=== PATIENT | female | born 1970 | race African-American/Black ===

== ENCOUNTER 2021-11-13 22:12 | Inpatient (IN) ==
[2021-11-13 23:11] LABS: ABG Base Excess -7.2 MMOL/L (-2.5-2.5); ABG HCO3 19.3 MMOL/L (20-26); ABG Oxygen Saturation 95.6 % (95-100); ABG PH 7.261 (7.35-7.45); ABG PO2 97.4 MM HG (80-95); ABG TCO2 20.7 MMOL/L (23-27)
[2021-11-13 23:23] LABS: Basophils % 0.1 % (0.0-0.8); Eosinophils % 0.1 % (0.00-10.9); Hematocrit 24.3 VOL% (35.7-47.0); Hemoglobin 8.2 GM/DL (12.0-16.0); Immature Granulocytes % 2.1 %; Immature Granulocytes Absolute 0.17 #; Lymphocytes # 0.4 10*3/uL (1.4-4.0); Lymphocytes % 5.2 % (21.3-54.2); Mean Corpuscular HGB Conc 33.7 GM/DL (32-36); Mean Corpuscular Volume 61.4 FL (87-102); Mean Platelet Volume 9.8 FL (9.6-12.0); Monocytes % 2.9 % (1.7-12.7); Neutrophils % 89.6 % (38.7-73.9); Platelet Count 274 T/CUMM (130-400); Red Blood Count 3.96 MC/CUMM (3.8-5.5); Red Cell Distribution Width 17.9 % (9.3-17.3)
[2021-11-13 23:30] LABS: Bilirubin,Urine Negative (Negative); Blood, Urine Moderate mg/dL (Negative); Glucose,Urine (UA) 150 mg/dL (Negative); Ketones,Urine Negative (Negative); Nitrite,Urine Negative (Negative); Protein,Urine 100 MG/DL; Urine Appearance CLOUDY (Clear); Urine Color Yellow (Yellow); Urine Specific Gravity 1.011 (1.001-1.035); Urine Urobilinogen < 2.0 EU/DL (<2.0)
[2021-11-13 23:46] LABS: Alanine Aminotransferase 24 U/L (13-56); Alkaline Phosphatase 58 U/L (45-117); Aspartate Amino Transferase 67 U/L (0-37); Bilirubin,Total < 0.39 MG/DL (0.20-1.00); Blood Urea Nitrogen 16 MG/DL (7-18); Calcium 7.1 MG/DL (8.5-10.1); Carbon Dioxide 19 MMOL/L (21-32); Estimated Glom Filtration Rate 49 ML/MIN; Glucose 183 MG/DL (74-106); Osmolality,Calculated 278.8 MOS/KG (273-304); Potassium 3.6 MMOL/L (3.5-5.1); Sodium 137 MMOL/L (136-145); Total Protein 5.9 G/DL (6.4-8.2)
[2021-11-13 23:56] LABS: Lymphocytes 5 % (20-55); Segmented Neutrophils 93 % (50-85); Total Cells Counted 100
[2021-11-14 00:02] LABS: Anisocytosis 1+; Hypochromia 1+; Microcytosis 1+; Target Cells 1+
[2021-11-14 00:03] LABS: Platelet Estimate Increased
[2021-11-14] MEDS: SODIUM CHLORIDE 0.9% 1,000 ML IV SCH ×5 (00:11→23:30)
[2021-11-14 04:04] LABS: ABG HCO3 20.6 MMOL/L (20-26); ABG Oxygen Saturation 98.8 % (95-100); ABG PH 7.268 (7.35-7.45); ABG PO2 224.4 MM HG (80-95)
[2021-11-14] MEDS ORDERED: ALBUTEROL 2.5 MG/3 ML NEB RESP TX PRN (04:42)
[2021-11-14] MEDS ORDERED: LACTULOSE 20 GM/30 ML UDCUP PO PRN (04:43)
[2021-11-14] MEDS ORDERED: ONDANSETRON 4 MG/2 ML VIAL IV PRN (04:43)
[2021-11-14 05:23] LABS: Basophils % 0.1 % (0.0-0.8); Hematocrit 24.8 VOL% (35.7-47.0); Hemoglobin 8.5 GM/DL (12.0-16.0); Immature Granulocytes % 1.4 %; Lymphocytes # 0.6 10*3/uL (1.4-4.0); Lymphocytes % 7.6 % (21.3-54.2); Mean Corpuscular HGB Conc 34.3 GM/DL (32-36); Mean Corpuscular Volume 61.4 FL (87-102); Monocytes % 2.5 % (1.7-12.7); Neutrophils % 88.4 % (38.7-73.9); Platelet Count 303 T/CUMM (130-400); Red Blood Count 4.04 MC/CUMM (3.8-5.5); Red Cell Distribution Width 18.2 % (9.3-17.3); White Blood Count 7.3 T/CUMM (4-12)
[2021-11-14] MEDS: PANTOPRAZOLE 40 MG VIAL IV SCH (05:24)
[2021-11-14] MEDS: ENOXAPARIN 40 MG/0.4 ML SYRINGE SUBCUT SCH (05:24)
[2021-11-14 05:41] LABS: Platelet Estimate Normal
[2021-11-14 05:42] LABS: Anisocytosis 2+; Burr Cells Few; Target Cells Few; Tear Drop Cells Few
[2021-11-14 05:53] LABS: Alanine Aminotransferase 27 U/L (13-56); Albumin 1.7 G/DL (3.4-5.0); Alkaline Phosphatase 54 U/L (45-117); Aspartate Amino Transferase 55 U/L (0-37); Bilirubin,Total < 0.39 MG/DL (0.20-1.00); Blood Urea Nitrogen 16 MG/DL (7-18); Calcium 6.6 MG/DL (8.5-10.1); Carbon Dioxide 20 MMOL/L (21-32); Estimated Glom Filtration Rate 49 ML/MIN; Glucose 68 MG/DL (74-106); Potassium 3.9 MMOL/L (3.5-5.1); Sodium 136 MMOL/L (136-145); Total Protein 5.7 G/DL (6.4-8.2)
[2021-11-14] MEDS ORDERED: GLUCAGON 1 MG VIAL IM PRN (06:44)
[2021-11-14] MEDS: cefTRIAXone 1,000 MG in SODIUM CHLORIDE 0.9% 100 ML IV SCH (07:10)
[2021-11-14] MEDS ORDERED: DEXTROSE 50% 25 GM/50 ML SYRINGE IV ONE (07:53)
[2021-11-14 07:54] LABS: ABG Base Excess -5.3 MMOL/L (-2.5-2.5); ABG Oxygen Saturation 99.2 % (95-100); ABG PH 7.331 (7.35-7.45); ABG TCO2 18.8 MMOL/L (23-27); Pt O2 Delivery Device Ventilator
[2021-11-14] MEDS ORDERED: DEXTROSE 50% 25 GM/50 ML VIAL IV STA (08:00)
[2021-11-14] MEDS: DEXTROSE 5% 1,000 ML IV SCH (08:00)
[2021-11-14] MEDS ORDERED: REMDESIVIR 200 MG in SODIUM CHLORIDE 0.9% 210 ML IV ONE (09:00)
[2021-11-14] MEDS: DEXAMETHASONE 10 MG/1 ML VIAL IV SCH (09:50)
[2021-11-14] MEDS: PREGABALIN 50 MG CAPSULE PO SCH (09:54)
[2021-11-14] MEDS: buPROPion SR 150 MG TABLET PO SCH (10:35)
[2021-11-14] MEDS: INSULIN LISPRO 100 UNIT/ML SUBCUT SCH ×2 (12:35→19:38)
[2021-11-14] MEDS: VANCOMYCIN 50 MG/ML 60 ML/BOTTLE PO SCH ×2 (12:35→17:45)
[2021-11-15] MEDS: VANCOMYCIN 50 MG/ML 60 ML/BOTTLE PO SCH ×4 (01:46→17:45)
[2021-11-15] MEDS: INSULIN LISPRO 100 UNIT/ML SUBCUT SCH ×4 (01:50→17:45)
[2021-11-15 04:16] LABS: ABG Base Excess -6.3 MMOL/L (-2.5-2.5); ABG HCO3 18.7 MMOL/L (20-26); ABG Oxygen Saturation 98.2 % (95-100); ABG PCO2 34.5 MM HG (35-48); ABG PH 7.351 (7.35-7.45); ABG PO2 153.2 MM HG (80-95); ABG TCO2 19.7 MMOL/L (23-27); Allen Test Positive; Pt O2 Delivery Device Ventilator
[2021-11-15 06:11] LABS: Hematocrit 19.4 VOL% (35.7-47.0); Hemoglobin 6.6 GM/DL (12.0-16.0); Immature Granulocytes % 1.4 %; Immature Granulocytes Absolute 0.11 #; Lymphocytes # 0.6 10*3/uL (1.4-4.0); Lymphocytes % 7.6 % (21.3-54.2); Mean Corpuscular Volume 60.8 FL (87-102); Mean Platelet Volume 9.6 FL (9.6-12.0); Monocytes % 1.6 % (1.7-12.7); Neutrophils % 89.4 % (38.7-73.9); Platelet Count 222 T/CUMM (130-400); Red Blood Count 3.19 MC/CUMM (3.8-5.5); White Blood Count 8.1 T/CUMM (4-12)
[2021-11-15] MEDS: INSULIN GLARGINE 100 UNIT/ML SUBCUT SCH ×2 (06:18→20:08)
[2021-11-15 06:31] LABS: INR 1.1; PT Patient Result 11.8 SECS (10.5-12.0)
[2021-11-15 06:34] LABS: Alanine Aminotransferase 17 U/L (13-56); Albumin 1.6 G/DL (3.4-5.0); Alkaline Phosphatase 63 U/L (45-117); Aspartate Amino Transferase 41 U/L (0-37); Bilirubin,Total < 0.39 MG/DL (0.20-1.00); Blood Urea Nitrogen 13 MG/DL (7-18); Calcium 7.1 MG/DL (8.5-10.1); Carbon Dioxide 19 MMOL/L (21-32); Estimated Glom Filtration Rate 53 ML/MIN; Glucose 101 MG/DL (74-106); Osmolality,Calculated 276.5 MOS/KG (273-304); Potassium 3.5 MMOL/L (3.5-5.1); Sodium 139 MMOL/L (136-145); Total Protein 5.6 G/DL (6.4-8.2)
[2021-11-15] MEDS: ENOXAPARIN 40 MG/0.4 ML SYRINGE SUBCUT SCH (06:38)
[2021-11-15 06:40] LABS: Alanine Aminotransferase 22 U/L (13-56); Albumin 1.6 G/DL (3.4-5.0); Alkaline Phosphatase 61 U/L (45-117); Aspartate Amino Transferase 42 U/L (0-37); Bilirubin,Direct < 0.100 MG/DL (0.0-0.20); Bilirubin,Indirect 0.3 MG/DL (0.0-1.0); Bilirubin,Total < 0.39 MG/DL (0.20-1.00); Blood Urea Nitrogen 13 MG/DL (7-18); Calcium 6.7 MG/DL (8.5-10.1); Carbon Dioxide 19 MMOL/L (21-32); Estimated Glom Filtration Rate 53 ML/MIN; Glucose 99 MG/DL (74-106); Osmolality,Calculated 280.3 MOS/KG (273-304); Potassium 3.6 MMOL/L (3.5-5.1); Sodium 141 MMOL/L (136-145); Total Protein 5.1 G/DL (6.4-8.2)
[2021-11-15] MEDS: PANTOPRAZOLE 40 MG VIAL IV SCH (06:42)
[2021-11-15 06:47] LABS: Band Neutrophils 1 % (0-10); Lymphocytes 6 % (20-55); Nucleated Red Blood Cells 1 (0-5); Platelet Estimate Normal; Segmented Neutrophils 92 % (50-85); Total Cells Counted 100
[2021-11-15 06:48] LABS: Hypochromia 2+; Microcytosis 3+; Target Cells Few
[2021-11-15] MEDS: PREGABALIN 50 MG CAPSULE PO SCH (09:15)
[2021-11-15] MEDS: buPROPion SR 150 MG TABLET PO SCH (09:15)
[2021-11-15] MEDS ORDERED: SODIUM CHLORIDE 0.9% 1,000 ML IV PRN (09:45)
[2021-11-15] MEDS ORDERED: MAGNESIUM SULF RIDER 2 GM/50 ML PREMIX IV ONE (09:48)
[2021-11-15] MEDS ORDERED: FUROSEMIDE 40 MG/4 ML VIAL IV ONE (09:51)
[2021-11-15] MEDS: DEXAMETHASONE 10 MG/1 ML VIAL IV SCH (11:08)
[2021-11-15] MEDS: SODIUM CHLORIDE 0.9% 1,000 ML IV SCH ×3 (11:09→19:09)
[2021-11-15] MEDS: cefTRIAXone 1,000 MG in SODIUM CHLORIDE 0.9% 100 ML IV SCH (11:11)
[2021-11-15] MEDS: DEXTROSE 5% 1,000 ML IV SCH (11:28)
[2021-11-15] MEDS: REMDESIVIR 100 MG in SODIUM CHLORIDE 0.9% 100 ML IV SCH (15:45)
[2021-11-15 17:31] LABS: Hematocrit 23.6 VOL% (35.7-47.0)
[2021-11-15] MEDS ORDERED: ZINC OXIDE PASTE 113 GM TUBE TOP PRN (18:48)
[2021-11-16] MEDS: VANCOMYCIN 50 MG/ML 60 ML/BOTTLE PO SCH ×5 (00:25→23:48)
[2021-11-16] MEDS: INSULIN LISPRO 100 UNIT/ML SUBCUT SCH ×5 (00:25→23:48)
[2021-11-16 04:04] LABS: ABG Base Excess -7.1 MMOL/L (-2.5-2.5); ABG HCO3 18.6 MMOL/L (20-26); ABG Oxygen Saturation 97.8 % (95-100); ABG PCO2 35.3 MM HG (35-48); ABG PH 7.322 (7.35-7.45); ABG TCO2 17.2 MMOL/L (23-27)
[2021-11-16] MEDS: PANTOPRAZOLE 40 MG VIAL IV SCH (05:17)
[2021-11-16] MEDS: ENOXAPARIN 40 MG/0.4 ML SYRINGE SUBCUT SCH (05:17)
[2021-11-16] MEDS: cefTRIAXone 1,000 MG in SODIUM CHLORIDE 0.9% 100 ML IV SCH (06:04)
[2021-11-16 06:30] LABS: Basophils % 0.1 % (0.0-0.8); Eosinophils % 0.3 % (0.00-10.9); Hematocrit 22.2 VOL% (35.7-47.0); Hemoglobin 7.6 GM/DL (12.0-16.0); Immature Granulocytes % 2.2 %; Immature Granulocytes Absolute 0.25 #; Lymphocytes # 0.6 10*3/uL (1.4-4.0); Lymphocytes % 5.6 % (21.3-54.2); Mean Corpuscular HGB Conc 34.2 GM/DL (32-36); Mean Corpuscular Volume 62.2 FL (87-102); Mean Platelet Volume 9.5 FL (9.6-12.0); Monocytes % 0.9 % (1.7-12.7); Neutrophils % 90.9 % (38.7-73.9); Platelet Count 199 T/CUMM (130-400); Red Blood Count 3.57 MC/CUMM (3.8-5.5); Red Cell Distribution Width 18.8 % (9.3-17.3); White Blood Count 11.4 T/CUMM (4-12)
[2021-11-16 06:40] LABS: INR 1.1; PT Patient Result 11.7 SECS (10.5-12.0)
[2021-11-16 06:52] LABS: Alanine Aminotransferase 18 U/L (13-56); Albumin 1.5 G/DL (3.4-5.0); Alkaline Phosphatase 72 U/L (45-117); Aspartate Amino Transferase 29 U/L (0-37); Bilirubin,Indirect 0.3 MG/DL (0.0-1.0); Bilirubin,Total 0.6 MG/DL (0.20-1.00); Bilirubin,Total < 0.39 MG/DL (0.20-1.00); Blood Urea Nitrogen 15 MG/DL (7-18); Calcium 6.9 MG/DL (8.5-10.1); Calcium 7.1 MG/DL (8.5-10.1); Carbon Dioxide 19 MMOL/L (21-32); Estimated Glom Filtration Rate 66 ML/MIN; Glucose 197 MG/DL (74-106); Osmolality,Calculated 284.4 MOS/KG (273-304); Osmolality,Calculated 286.3 MOS/KG (273-304); Potassium 3.1 MMOL/L (3.5-5.1); Sodium 140 MMOL/L (136-145); Total Protein 5.5 G/DL (6.4-8.2); Total Protein 5.7 G/DL (6.4-8.2)
[2021-11-16 06:54] LABS: % Iron Saturation 9.1 % (18-50)
[2021-11-16] MEDS: DEXTROSE 5% 1,000 ML IV SCH (07:02)
[2021-11-16] MEDS: DEXAMETHASONE 10 MG/1 ML VIAL IV SCH (08:29)
[2021-11-16] MEDS: REMDESIVIR 100 MG in SODIUM CHLORIDE 0.9% 100 ML IV SCH (08:29)
[2021-11-16] MEDS ORDERED: POTASSIUM CHLORIDE 20 MEQ TABLET PO ONE (10:30)
[2021-11-16] MEDS ORDERED: VANCOMYCIN INJ 2,000 MG in SODIUM CHLORIDE 0.9% 500 ML IV SCH (12:00)
[2021-11-16] MEDS: VANCOMYCIN INJ 1,000 MG in SODIUM CHLORIDE 0.9% 250 ML IV SCH (12:44)
[2021-11-16] MEDS: INSULIN GLARGINE 100 UNIT/ML SUBCUT SCH (20:10)
[2021-11-17 03:28] LABS: ABG HCO3 18.7 MMOL/L (20-26); ABG Oxygen Saturation 99.5 % (95-100); ABG PCO2 31.8 MM HG (35-48); ABG PH 7.354 (7.35-7.45); ABG TCO2 16.5 MMOL/L (23-27)
[2021-11-17] MEDS: ENOXAPARIN 40 MG/0.4 ML SYRINGE SUBCUT SCH (05:15)
[2021-11-17] MEDS: PANTOPRAZOLE 40 MG VIAL IV SCH (05:15)
[2021-11-17] MEDS: VANCOMYCIN 50 MG/ML 60 ML/BOTTLE PO SCH ×3 (05:16→18:45)
[2021-11-17 06:20] LABS: Basophils % 0.1 % (0.0-0.8); Eosinophils # 0.1 10*3/uL (0.0-0.87); Eosinophils % 0.7 % (0.00-10.9); Hematocrit 23.7 VOL% (35.7-47.0); Immature Granulocytes Absolute 0.23 #; Lymphocytes # 0.9 10*3/uL (1.4-4.0); Lymphocytes % 7.8 % (21.3-54.2); Mean Corpuscular HGB Conc 33.8 GM/DL (32-36); Mean Corpuscular Volume 63.2 FL (87-102); Mean Platelet Volume 9.2 FL (9.6-12.0); Monocytes % 1.1 % (1.7-12.7); NRBC # 0.02 10*3/uL; Neutrophils % 88.3 % (38.7-73.9); Platelet Count 161 T/CUMM (130-400); Red Blood Count 3.75 MC/CUMM (3.8-5.5); Red Cell Distribution Width 18.9 % (9.3-17.3); White Blood Count 11.7 T/CUMM (4-12)
[2021-11-17 06:40] LABS: Band Neutrophils 1 % (0-10); Hypochromia 1+; Lymphocytes 6 % (20-55); Microcytosis 1+; Nucleated Red Blood Cells 1 (0-5); Platelet Estimate Adequate; Segmented Neutrophils 93 % (50-85); Total Cells Counted 100
[2021-11-17] MEDS: VANCOMYCIN INJ 1,000 MG in SODIUM CHLORIDE 0.9% 250 ML IV SCH (06:52)
[2021-11-17] MEDS: INSULIN LISPRO 100 UNIT/ML SUBCUT SCH ×3 (06:52→18:45)
[2021-11-17] MEDS: DEXTROSE 5% 1,000 ML IV SCH (07:23)
[2021-11-17 07:48] LABS: Calcium 7.1 MG/DL (8.5-10.1); Osmolality,Calculated 284.3 MOS/KG (273-304); Potassium 3.5 MMOL/L (3.5-5.1)
[2021-11-17] MEDS: DEXAMETHASONE 10 MG/1 ML VIAL IV SCH (09:07)
[2021-11-17] MEDS: REMDESIVIR 100 MG in SODIUM CHLORIDE 0.9% 100 ML IV SCH (10:37)
[2021-11-17] MEDS ORDERED: POTASSIUM PHOSPHATE 30 MMOL in SODIUM CHLORIDE 0.9% 250 ML IV ONE (12:30)
[2021-11-17] MEDS: SODIUM BICARBONATE 650 MG TABLET PO SCH ×2 (14:08→20:45)
[2021-11-17] MEDS: INSULIN GLARGINE 100 UNIT/ML SUBCUT SCH (20:45)
[2021-11-18] MEDS: INSULIN LISPRO 100 UNIT/ML SUBCUT SCH ×4 (00:39→18:18)
[2021-11-18] MEDS: VANCOMYCIN 50 MG/ML 60 ML/BOTTLE PO SCH ×4 (00:39→18:18)
[2021-11-18 03:15] LABS: ABG Base Excess -7.6 MMOL/L (-2.5-2.5); ABG HCO3 18.2 MMOL/L (20-26); ABG PCO2 30.8 MM HG (35-48); ABG PH 7.351 (7.35-7.45); ABG TCO2 15.8 MMOL/L (23-27)
[2021-11-18] MEDS ORDERED: ENOXAPARIN 30 MG/0.3 ML SYRINGE SUBCUT SCH (05:00)
[2021-11-18 05:45] LABS: Basophils % 0.1 % (0.0-0.8); Eosinophils % 0.1 % (0.00-10.9); Hematocrit 21.9 VOL% (35.7-47.0); Hemoglobin 7.6 GM/DL (12.0-16.0); Immature Granulocytes % 2.9 %; Immature Granulocytes Absolute 0.35 #; Lymphocytes # 0.7 10*3/uL (1.4-4.0); Lymphocytes % 5.6 % (21.3-54.2); Mean Corpuscular HGB Conc 34.7 GM/DL (32-36); Mean Corpuscular Volume 62.2 FL (87-102); Mean Platelet Volume 9.5 FL (9.6-12.0); Monocytes % 1.5 % (1.7-12.7); Neutrophils % 89.8 % (38.7-73.9); Platelet Count 134 T/CUMM (130-400); Red Blood Count 3.52 MC/CUMM (3.8-5.5); Red Cell Distribution Width 19.1 % (9.3-17.3); White Blood Count 12.1 T/CUMM (4-12)
[2021-11-18] MEDS: PANTOPRAZOLE 40 MG VIAL IV SCH (05:54)
[2021-11-18 06:05] LABS: Band Neutrophils 1 % (0-10); Hypochromia 1+; Lymphocytes 5 % (20-55); Microcytosis 1+; Platelet Estimate Normal; Segmented Neutrophils 93 % (50-85); Total Cells Counted 100
[2021-11-18 06:45] LABS: Albumin 1.4 G/DL (3.4-5.0); Bilirubin,Total 0.8 MG/DL (0.20-1.00); Calcium 7.2 MG/DL (8.5-10.1); Osmolality,Calculated 298.3 MOS/KG (273-304); Potassium 3.8 MMOL/L (3.5-5.1); Total Protein 5.9 G/DL (6.4-8.2)
[2021-11-18] MEDS: DEXAMETHASONE 10 MG/1 ML VIAL IV SCH (08:45)
[2021-11-18] MEDS: SODIUM BICARBONATE 650 MG TABLET PO SCH ×3 (08:46→20:27)
[2021-11-18] MEDS ORDERED: SODIUM CHLORIDE 0.9% 1,000 ML IV ONE (09:00)
[2021-11-18] MEDS: LACTATED RINGERS 1,000 ML IV SCH ×4 (09:24→20:46)
[2021-11-18] MEDS ORDERED: ENOXAPARIN 30 MG/0.3 ML SYRINGE SUBCUT ONE (10:00)
[2021-11-18] MEDS ORDERED: ENOXAPARIN 60 MG/0.6 ML SYRINGE SUBCUT SCH (10:00)
[2021-11-18] MEDS ORDERED: INSULIN GLARGINE 100 UNIT/ML SUBCUT SCH (21:00)
[2021-11-19] MEDS: VANCOMYCIN 50 MG/ML 60 ML/BOTTLE PO SCH ×4 (00:26→17:55)
[2021-11-19] MEDS: INSULIN LISPRO 100 UNIT/ML SUBCUT SCH ×4 (00:26→17:54)
[2021-11-19] MEDS: LACTATED RINGERS 1,000 ML IV SCH ×2 (00:26→15:09)
[2021-11-19 04:04] LABS: ABG Base Excess -5.3 MMOL/L (-2.5-2.5); ABG HCO3 18.6 MMOL/L (20-26); ABG Oxygen Saturation 95.1 % (95-100); ABG PCO2 29.8 MM HG (35-48); ABG PH 7.413 (7.35-7.45); ABG TCO2 19.5 MMOL/L (23-27)
[2021-11-19] MEDS: PANTOPRAZOLE 40 MG VIAL IV SCH (04:34)
[2021-11-19 04:50] LABS: Basophils % 0.1 % (0.0-0.8); Eosinophils # 0.1 10*3/uL (0.0-0.87); Eosinophils % 0.8 % (0.00-10.9); Hematocrit 22.2 VOL% (35.7-47.0); Hemoglobin 7.6 GM/DL (12.0-16.0); Immature Granulocytes % 3.4 %; Immature Granulocytes Absolute 0.44 #; Lymphocytes # 0.9 10*3/uL (1.4-4.0); Lymphocytes % 7.2 % (21.3-54.2); Mean Corpuscular HGB Conc 34.2 GM/DL (32-36); Mean Corpuscular Volume 62.4 FL (87-102); Mean Platelet Volume 9.7 FL (9.6-12.0); Monocytes % 1.3 % (1.7-12.7); NRBC # 0.02 10*3/uL; Neutrophils % 87.2 % (38.7-73.9); Platelet Count 130 T/CUMM (130-400); Red Blood Count 3.56 MC/CUMM (3.8-5.5); White Blood Count 12.9 T/CUMM (4-12)
[2021-11-19 05:13] LABS: Band Neutrophils 3 % (0-10); Hypochromia 1+; Lymphocytes 6 % (20-55); Microcytosis 1+; Segmented Neutrophils 87 % (50-85); Target Cells Few; Total Cells Counted 100
[2021-11-19 05:14] LABS: Platelet Estimate Adequate
[2021-11-19 05:36] LABS: Albumin 1.4 G/DL (3.4-5.0); Bilirubin,Total 0.4 MG/DL (0.20-1.00); Calcium 7.5 MG/DL (8.5-10.1); Osmolality,Calculated 285.3 MOS/KG (273-304); Potassium 3.3 MMOL/L (3.5-5.1)
[2021-11-19] MEDS: SODIUM BICARBONATE 650 MG TABLET PO SCH ×3 (09:20→20:17)
[2021-11-19] MEDS: DEXAMETHASONE 10 MG/1 ML VIAL IV SCH (09:20)
[2021-11-19] MEDS: ENOXAPARIN 60 MG/0.6 ML SYRINGE SUBCUT SCH (09:20)
[2021-11-19] MEDS ORDERED: traZODone 50 MG TABLET PO PRN (15:13)
[2021-11-19] MEDS ORDERED: POTASSIUM CHLORIDE 20 MEQ TABLET PO ONE (15:20)
[2021-11-19] MEDS: FERROUS SULFATE 300 MG/5 ML UDCUP PO SCH (20:17)
[2021-11-19] MEDS: INSULIN GLARGINE 100 UNIT/ML SUBCUT SCH (20:18)
[2021-11-20] MEDS: VANCOMYCIN 50 MG/ML 60 ML/BOTTLE PO SCH ×4 (00:15→17:14)
[2021-11-20] MEDS: LACTATED RINGERS 1,000 ML IV SCH ×2 (00:15→06:25)
[2021-11-20] MEDS: INSULIN LISPRO 100 UNIT/ML SUBCUT SCH ×4 (00:15→17:13)
[2021-11-20] MEDS: fentaNYL INJ 1,250 MCG in SODIUM CHLORIDE 0.9% 225 ML IV PRN ×2 (03:18→23:00)
[2021-11-20 03:28] LABS: ABG Base Excess -5.1 MMOL/L (-2.5-2.5); ABG HCO3 19.1 MMOL/L (20-26); ABG Oxygen Saturation 90.3 % (95-100); ABG PCO2 31.5 MM HG (35-48)
[2021-11-20] MEDS: PANTOPRAZOLE 40 MG VIAL IV SCH (06:00)
[2021-11-20 06:37] LABS: Basophils % 0.1 % (0.0-0.8); Eosinophils # 0.1 10*3/uL (0.0-0.87); Eosinophils % 0.9 % (0.00-10.9); Hematocrit 21.2 VOL% (35.7-47.0); Hemoglobin 7.1 GM/DL (12.0-16.0); Immature Granulocytes % 2.3 %; Immature Granulocytes Absolute 0.31 #; Lymphocytes # 0.8 10*3/uL (1.4-4.0); Lymphocytes % 6.3 % (21.3-54.2); Mean Corpuscular HGB Conc 33.5 GM/DL (32-36); Mean Corpuscular Volume 64.4 FL (87-102); Mean Platelet Volume 10.1 FL (9.6-12.0); Monocytes % 1.4 % (1.7-12.7); Platelet Count 128 T/CUMM (130-400); Red Blood Count 3.29 MC/CUMM (3.8-5.5); Red Cell Distribution Width 19.1 % (9.3-17.3); White Blood Count 13.3 T/CUMM (4-12)
[2021-11-20 07:06] LABS: Band Neutrophils 7 % (0-10); Eosinophils 2 % (0-10); Lymphocytes 3 % (20-55); Myelocytes 1 %; Segmented Neutrophils 84 % (50-85); Total Cells Counted 100
[2021-11-20 07:07] LABS: Hypochromia 1+; Microcytosis 1+; Platelet Estimate Adequate; Target Cells Slight
[2021-11-20] MEDS: ENOXAPARIN 60 MG/0.6 ML SYRINGE SUBCUT SCH (08:10)
[2021-11-20] MEDS: DEXAMETHASONE 10 MG/1 ML VIAL IV SCH (08:10)
[2021-11-20] MEDS: FERROUS SULFATE 300 MG/5 ML UDCUP PO SCH ×2 (08:10→20:06)
[2021-11-20] MEDS: POTASSIUM CHLORIDE 20 MEQ TABLET PO SCH (08:10)
[2021-11-20] MEDS: SODIUM BICARBONATE 650 MG TABLET PO SCH ×3 (08:10→20:05)
[2021-11-20] MEDS: ATORVASTATIN 40 MG TABLET PO SCH (08:10)
[2021-11-20] MEDS: CITALOPRAM 40 MG TABLET PO SCH (08:10)
[2021-11-20] MEDS ORDERED: FUROSEMIDE 40 MG/4 ML VIAL IV ONE (09:37)
[2021-11-20] MEDS ORDERED: PHENYLEPHRINE DRIP 40 MG/250 ML PREMIX IV ONE (18:03)
[2021-11-20] MEDS: PHENYLEPHRINE DRIP 40 MG/250 ML PREMIX IV PRN (18:06)
[2021-11-20] MEDS: INSULIN GLARGINE 100 UNIT/ML SUBCUT SCH (20:06)
[2021-11-21] MEDS: VANCOMYCIN 50 MG/ML 60 ML/BOTTLE PO SCH ×4 (00:13→19:26)
[2021-11-21] MEDS: INSULIN LISPRO 100 UNIT/ML SUBCUT SCH ×4 (00:13→19:25)
[2021-11-21 04:33] LABS: ABG Base Excess -6.2 MMOL/L (-2.5-2.5); ABG HCO3 19.3 MMOL/L (20-26); ABG PCO2 47.2 MM HG (35-48); ABG PH 7.251 (7.35-7.45); ABG TCO2 19.8 MMOL/L (23-27)
[2021-11-21] MEDS: PANTOPRAZOLE 40 MG VIAL IV SCH (06:01)
[2021-11-21 06:03] LABS: Basophils % 0.1 % (0.0-0.8); Eosinophils # 0.1 10*3/uL (0.0-0.87); Eosinophils % 0.4 % (0.00-10.9); Hematocrit 21.9 VOL% (35.7-47.0); Hemoglobin 7.2 GM/DL (12.0-16.0); Immature Granulocytes % 2.2 %; Lymphocytes # 0.8 10*3/uL (1.4-4.0); Lymphocytes % 4.5 % (21.3-54.2); Mean Corpuscular HGB Conc 32.9 GM/DL (32-36); Mean Corpuscular Volume 64.6 FL (87-102); Mean Platelet Volume 9.8 FL (9.6-12.0); Monocytes % 1.4 % (1.7-12.7); Neutrophils % 91.4 % (38.7-73.9); Platelet Count 157 T/CUMM (130-400); Red Blood Count 3.39 MC/CUMM (3.8-5.5); Red Cell Distribution Width 19.6 % (9.3-17.3); White Blood Count 18.1 T/CUMM (4-12)
[2021-11-21 06:21] LABS: Albumin 1.2 G/DL (3.4-5.0); Bilirubin,Total 0.8 MG/DL (0.20-1.00); Calcium 7.5 MG/DL (8.5-10.1); Osmolality,Calculated 291.4 MOS/KG (273-304); Potassium 3.8 MMOL/L (3.5-5.1)
[2021-11-21 07:53] LABS: Anisocytosis 2+; Band Neutrophils 29 % (0-10); Lymphocytes 5 % (20-55); Metamyelocytes 2 %; Myelocytes 1 %; Nucleated Red Blood Cells 2 (0-5); Platelet Estimate Normal; Segmented Neutrophils 63 % (50-85); Target Cells 1+; Tear Drop Cells Few; Total Cells Counted 100
[2021-11-21 07:54] LABS: Polychromasia Slight; Smudge Cells Few
[2021-11-21] MEDS: ENOXAPARIN 60 MG/0.6 ML SYRINGE SUBCUT SCH (10:09)
[2021-11-21] MEDS: DEXAMETHASONE 10 MG/1 ML VIAL IV SCH (10:09)
[2021-11-21] MEDS: CITALOPRAM 40 MG TABLET PO SCH (10:10)
[2021-11-21] MEDS: ATORVASTATIN 40 MG TABLET PO SCH (10:10)
[2021-11-21] MEDS: SODIUM BICARBONATE 650 MG TABLET PO SCH ×3 (10:10→20:36)
[2021-11-21] MEDS: POTASSIUM CHLORIDE 20 MEQ TABLET PO SCH (10:10)
[2021-11-21] MEDS: FERROUS SULFATE 300 MG/5 ML UDCUP PO SCH ×2 (10:10→20:36)
[2021-11-21] MEDS: PHENYLEPHRINE DRIP 40 MG/250 ML PREMIX IV PRN ×2 (12:16→19:12)
[2021-11-21 12:54] LABS: ABG Base Excess -6.9 MMOL/L (-2.5-2.5); ABG HCO3 18.5 MMOL/L (20-26); ABG Oxygen Saturation 77.6 % (95-100); ABG PCO2 56.9 MM HG (35-48); ABG TCO2 20.7 MMOL/L (23-27)
[2021-11-21 12:56] LABS: ABG PH 7.184 (7.35-7.45)
[2021-11-21] MEDS ORDERED: SODIUM BICARBONATE 50 MEQ/50 ML VIAL IV ONE (13:00)
[2021-11-21] MEDS ORDERED: diphenhydrAMINE 50 MG/1 ML VIAL IV ONE ×2 (15:35→15:55)
[2021-11-21] MEDS ORDERED: ACETAMINOPHEN 325 MG/10.15 ML UDCUP PO ONE (15:35)
[2021-11-21] MEDS: cefTRIAXone 1,000 MG in SODIUM CHLORIDE 0.9% 100 ML IV SCH (18:13)
[2021-11-21] MEDS: CHOLESTYRAMINE 4 GM PACK PO SCH ×2 (18:14→21:03)
[2021-11-21] MEDS: AZITHROMYCIN INJ 500 MG in SODIUM CHLORIDE 0.9% 250 ML IV SCH (18:14)
[2021-11-21] MEDS: fentaNYL INJ 1,250 MCG in SODIUM CHLORIDE 0.9% 225 ML IV PRN (19:46)
[2021-11-21] MEDS: INSULIN GLARGINE 100 UNIT/ML SUBCUT SCH (20:33)
[2021-11-22] MEDS: PHENYLEPHRINE DRIP 40 MG/250 ML PREMIX IV PRN
[2021-11-22 00:30] LABS: ABG Base Excess -7.3 MMOL/L (-2.5-2.5); ABG HCO3 18.3 MMOL/L (20-26); ABG Oxygen Saturation 83.6 % (95-100); ABG PCO2 49.3 MM HG (35-48); ABG PH 7.226 (7.35-7.45); ABG PO2 53.3 MM HG (80-95)
[2021-11-22] MEDS: VANCOMYCIN 50 MG/ML 60 ML/BOTTLE PO SCH ×4 (00:44→17:51)
[2021-11-22] MEDS: DEXTROSE 10% 250 ML BAG IV PRN (00:44)
[2021-11-22] MEDS: INSULIN LISPRO 100 UNIT/ML SUBCUT SCH ×5 (00:50→23:22)
[2021-11-22] MEDS ORDERED: MIDAZOLAM 2 MG/2 ML VIAL IV ONE (00:54)
[2021-11-22] MEDS: MIDAZOLAM 100 MG in SODIUM CHLORIDE 0.9% 80 ML IV PRN ×2 (01:15→20:50)
[2021-11-22] MEDS: PHENYLEPHRINE INJ 160 MG in SODIUM CHLORIDE 0.9% 234 ML IV PRN ×2 (03:52→13:33)
[2021-11-22 04:12] LABS: ABG Base Excess -8.2 MMOL/L (-2.5-2.5); ABG HCO3 17.7 MMOL/L (20-26); ABG Oxygen Saturation 94.3 % (95-100); ABG PCO2 52.3 MM HG (35-48); ABG PO2 80.8 MM HG (80-95); ABG TCO2 19.1 MMOL/L (23-27)
[2021-11-22 04:15] LABS: ABG PH 7.192 (7.35-7.45)
[2021-11-22] MEDS: ACETAMINOPHEN 325 MG TABLET PO PRN (04:15)
[2021-11-22] MEDS: PANTOPRAZOLE 40 MG VIAL IV SCH (04:15)
[2021-11-22 04:17] LABS: Basophils % 0.2 % (0.0-0.8); Eosinophils # 0.2 10*3/uL (0.0-0.87); Eosinophils % 0.9 % (0.00-10.9); Hematocrit 26.5 VOL% (35.7-47.0); Hemoglobin 8.7 GM/DL (12.0-16.0); Immature Granulocytes % 3.5 %; Immature Granulocytes Absolute 0.73 #; Lymphocytes % 4.8 % (21.3-54.2); Mean Corpuscular HGB Conc 32.8 GM/DL (32-36); Mean Corpuscular Volume 67.9 FL (87-102); Mean Platelet Volume 10.1 FL (9.6-12.0); Monocytes % 1.2 % (1.7-12.7); NRBC # 0.06 10*3/uL; Neutrophils % 89.4 % (38.7-73.9); Platelet Count 180 T/CUMM (130-400); Red Cell Distribution Width 22.7 % (9.3-17.3); White Blood Count 21.1 T/CUMM (4-12)
[2021-11-22 04:37] LABS: Calcium 6.6 MG/DL (8.5-10.1); Osmolality,Calculated 289.7 MOS/KG (273-304); Potassium 4.3 MMOL/L (3.5-5.1)
[2021-11-22 04:50] LABS: Band Neutrophils 2 % (0-10); Hypochromia 1+; Lymphocytes 6 % (20-55); Microcytosis 1+; Nucleated Red Blood Cells 2 (0-5); Platelet Estimate Adequate; Segmented Neutrophils 90 % (50-85); Total Cells Counted 100
[2021-11-22] MEDS ORDERED: SODIUM CHLORIDE 0.9% 500 ML IV ONE (04:52)
[2021-11-22] MEDS ORDERED: MAGNESIUM SULF RIDER 4 GM/100 ML PREMIX IV PRN (04:52)
[2021-11-22] MEDS ORDERED: SODIUM BICARBONATE 50 MEQ/50 ML VIAL IV ONE ×2 (04:52→07:33)
[2021-11-22] MEDS ORDERED: MAGNESIUM SULF RIDER 2 GM/50 ML PREMIX IV PRN (04:52)
[2021-11-22] MEDS: fentaNYL INJ 1,250 MCG in SODIUM CHLORIDE 0.9% 225 ML IV PRN (05:14)
[2021-11-22] MEDS ORDERED: NOREPINEPHRINE 16 MG in SODIUM CHLORIDE 0.9% 234 ML IV PRN (08:09)
[2021-11-22] MEDS: SODIUM BICARBONATE 650 MG TABLET PO SCH ×3 (09:24→20:26)
[2021-11-22] MEDS: ENOXAPARIN 60 MG/0.6 ML SYRINGE SUBCUT SCH (09:25)
[2021-11-22] MEDS: DEXAMETHASONE 10 MG/1 ML VIAL IV SCH (09:25)
[2021-11-22] MEDS: ATORVASTATIN 40 MG TABLET PO SCH (09:25)
[2021-11-22] MEDS: POTASSIUM CHLORIDE 20 MEQ TABLET PO SCH (09:25)
[2021-11-22] MEDS: CITALOPRAM 40 MG TABLET PO SCH (09:25)
[2021-11-22] MEDS: FERROUS SULFATE 300 MG/5 ML UDCUP PO SCH ×2 (09:25→20:26)
[2021-11-22] MEDS: CHOLESTYRAMINE 4 GM PACK PO SCH ×2 (09:27→21:10)
[2021-11-22] MEDS: SODIUM BICARB INJ 100 MEQ in SODIUM CHLORIDE 0.45% 1,000 ML IV SCH ×2 (10:47→21:10)
[2021-11-22] MEDS: MICAFUNGIN 100 MG in SODIUM CHLORIDE 0.9% 100 ML IV SCH (15:14)
[2021-11-22] MEDS: ALBUTEROL/IPRATROPIUM 3 ML NEB RESP TX SCH ×2 (16:52→18:18)
[2021-11-22] MEDS ORDERED: SODIUM CHLORIDE 0.9% 1,000 ML IV ONE (17:32)
[2021-11-22] MEDS: AZITHROMYCIN INJ 500 MG in SODIUM CHLORIDE 0.9% 250 ML IV SCH (17:50)
[2021-11-22] MEDS: cefTRIAXone 1,000 MG in SODIUM CHLORIDE 0.9% 100 ML IV SCH (17:50)
[2021-11-22] MEDS: INSULIN GLARGINE 100 UNIT/ML SUBCUT SCH (20:27)
[2021-11-23] MEDS: ALBUTEROL/IPRATROPIUM 3 ML NEB RESP TX SCH ×5 (01:40→18:06)
[2021-11-23 03:30] LABS: ABG Base Excess -2.8 MMOL/L (-2.5-2.5); ABG Oxygen Saturation 93.3 % (95-100); ABG PCO2 43.4 MM HG (35-48); ABG PH 7.331 (7.35-7.45); ABG PO2 73.3 MM HG (80-95); ABG TCO2 21.5 MMOL/L (23-27)
[2021-11-23 03:40] LABS: Basophils % 0.1 % (0.0-0.8); Hematocrit 22.7 VOL% (35.7-47.0); Hemoglobin 7.5 GM/DL (12.0-16.0); Immature Granulocytes % 1.1 %; Immature Granulocytes Absolute 0.19 #; Lymphocytes # 0.5 10*3/uL (1.4-4.0); Lymphocytes % 2.6 % (21.3-54.2); Mean Corpuscular Volume 66.4 FL (87-102); Mean Platelet Volume 9.7 FL (9.6-12.0); Monocytes % 1.4 % (1.7-12.7); NRBC # 0.03 10*3/uL; Neutrophils % 94.8 % (38.7-73.9); Platelet Count 175 T/CUMM (130-400); Red Blood Count 3.42 MC/CUMM (3.8-5.5); Red Cell Distribution Width 22.3 % (9.3-17.3); White Blood Count 17.5 T/CUMM (4-12)
[2021-11-23 03:52] LABS: Calcium 6.3 MG/DL (8.5-10.1); Potassium 4.2 MMOL/L (3.5-5.1)
[2021-11-23 04:02] LABS: Band Neutrophils 3 % (0-10); Hypochromia 1+; Lymphocytes 3 % (20-55); Microcytosis 1+; Platelet Estimate Adequate; Segmented Neutrophils 93 % (50-85); Total Cells Counted 100
[2021-11-23] MEDS: VANCOMYCIN 50 MG/ML 60 ML/BOTTLE PO SCH ×4 (06:00→18:49)
[2021-11-23] MEDS: PANTOPRAZOLE 40 MG VIAL IV SCH (06:00)
[2021-11-23] MEDS: INSULIN LISPRO 100 UNIT/ML SUBCUT SCH ×3 (06:01→18:49)
[2021-11-23] MEDS: ENOXAPARIN 60 MG/0.6 ML SYRINGE SUBCUT SCH (08:29)
[2021-11-23] MEDS: DEXAMETHASONE 10 MG/1 ML VIAL IV SCH (08:29)
[2021-11-23] MEDS: SODIUM BICARBONATE 650 MG TABLET PO SCH ×3 (08:29→20:27)
[2021-11-23] MEDS: FERROUS SULFATE 300 MG/5 ML UDCUP PO SCH ×2 (08:30→20:27)
[2021-11-23] MEDS: ATORVASTATIN 40 MG TABLET PO SCH (08:30)
[2021-11-23] MEDS: CITALOPRAM 40 MG TABLET PO SCH (08:30)
[2021-11-23] MEDS: POTASSIUM CHLORIDE 20 MEQ TABLET PO SCH (08:30)
[2021-11-23] MEDS: SODIUM BICARB INJ 100 MEQ in SODIUM CHLORIDE 0.45% 1,000 ML IV SCH (08:58)
[2021-11-23] MEDS: CHOLESTYRAMINE 4 GM PACK PO SCH ×2 (09:32→21:20)
[2021-11-23] MEDS: fentaNYL INJ 1,250 MCG in SODIUM CHLORIDE 0.9% 225 ML IV PRN (10:39)
[2021-11-23] MEDS: PHENYLEPHRINE INJ 160 MG in SODIUM CHLORIDE 0.9% 234 ML IV PRN ×2 (13:02→18:00)
[2021-11-23] MEDS: MICAFUNGIN 100 MG in SODIUM CHLORIDE 0.9% 100 ML IV SCH (15:30)
[2021-11-23] MEDS: cefTRIAXone 1,000 MG in SODIUM CHLORIDE 0.9% 100 ML IV SCH (15:31)
[2021-11-23] MEDS: AZITHROMYCIN INJ 500 MG in SODIUM CHLORIDE 0.9% 250 ML IV SCH (15:31)
[2021-11-23] MEDS ORDERED: SODIUM CHLORIDE 0.9% 500 ML IV ONE (15:40)
[2021-11-23] MEDS ORDERED: SODIUM BICARB INJ 100 MEQ in SODIUM CHLORIDE 0.45% 1,000 ML IV SCH (16:00)
[2021-11-23] MEDS: INSULIN GLARGINE 100 UNIT/ML SUBCUT SCH (20:28)
[2021-11-23] MEDS: MIDAZOLAM 100 MG in SODIUM CHLORIDE 0.9% 80 ML IV PRN (20:36)
[2021-11-24] MEDS ORDERED: INSULIN REGULAR 100 UNIT/ML IV SCH
[2021-11-24] MEDS: INSULIN LISPRO 100 UNIT/ML SUBCUT SCH ×4 (00:16→18:27)
[2021-11-24] MEDS: ALBUTEROL/IPRATROPIUM 3 ML NEB RESP TX SCH ×4 (01:20→19:53)
[2021-11-24] MEDS ORDERED: SODIUM CHLORIDE 0.9% 500 ML IV ONE (01:44)
[2021-11-24 03:34] LABS: Basophils % 0.1 % (0.0-0.8); Eosinophils % 0.1 % (0.00-10.9); Hematocrit 19.9 VOL% (35.7-47.0); Hemoglobin 6.6 GM/DL (12.0-16.0); Immature Granulocytes Absolute 0.26 #; Lymphocytes # 0.5 10*3/uL (1.4-4.0); Mean Corpuscular HGB Conc 33.2 GM/DL (32-36); Mean Platelet Volume 10.8 FL (9.6-12.0); Monocytes % 2.4 % (1.7-12.7); NRBC # 0.05 10*3/uL; Neutrophils % 91.4 % (38.7-73.9); Platelet Count 196 T/CUMM (130-400); Red Blood Count 2.97 MC/CUMM (3.8-5.5); Red Cell Distribution Width 22.5 % (9.3-17.3); White Blood Count 12.9 T/CUMM (4-12)
[2021-11-24 03:41] LABS: ABG Base Excess -2.8 MMOL/L (-2.5-2.5); ABG HCO3 22.1 MMOL/L (20-26); ABG Oxygen Saturation 97.6 % (95-100); ABG PCO2 43.8 MM HG (35-48); ABG PH 7.329 (7.35-7.45); ABG TCO2 21.5 MMOL/L (23-27)
[2021-11-24 03:50] LABS: Calcium 6.4 MG/DL (8.5-10.1); Osmolality,Calculated 305.1 MOS/KG (273-304); Potassium 4.2 MMOL/L (3.5-5.1)
[2021-11-24 03:54] LABS: Band Neutrophils 1 % (0-10); Hypochromia 2+; Lymphocytes 3 % (20-55); Microcytosis 1+; Myelocytes 2 %; Nucleated Red Blood Cells 1 (0-5); Polychromasia Slight; Segmented Neutrophils 92 % (50-85); Target Cells 1+; Total Cells Counted 100
[2021-11-24 03:55] LABS: Platelet Estimate Adequate
[2021-11-24] MEDS: fentaNYL INJ 1,250 MCG in SODIUM CHLORIDE 0.9% 225 ML IV PRN ×2 (04:47→23:48)
[2021-11-24] MEDS ORDERED: SODIUM CHLORIDE 0.9% 1,000 ML IV PRN (04:47)
[2021-11-24] MEDS: PANTOPRAZOLE 40 MG VIAL IV SCH (06:10)
[2021-11-24 09:17] LABS: ABG Base Excess -3.1 MMOL/L (-2.5-2.5); ABG HCO3 22.9 MMOL/L (20-26); ABG Oxygen Saturation 81.7 % (95-100); ABG PCO2 45.7 MM HG (35-48); ABG PH 7.318 (7.35-7.45); ABG PO2 48.4 MM HG (80-95); ABG TCO2 24.3 MMOL/L (23-27)
[2021-11-24] MEDS: FERROUS SULFATE 300 MG/5 ML UDCUP PO SCH ×2 (10:29→20:20)
[2021-11-24] MEDS: POTASSIUM CHLORIDE 20 MEQ TABLET PO SCH (10:29)
[2021-11-24] MEDS: CHOLESTYRAMINE 4 GM PACK PO SCH ×2 (10:29→22:02)
[2021-11-24] MEDS: CITALOPRAM 40 MG TABLET PO SCH (10:29)
[2021-11-24] MEDS: ATORVASTATIN 40 MG TABLET PO SCH (10:29)
[2021-11-24] MEDS: SODIUM BICARBONATE 650 MG TABLET PO SCH ×3 (10:29→20:20)
[2021-11-24] MEDS: DEXAMETHASONE 10 MG/1 ML VIAL IV SCH (10:30)
[2021-11-24] MEDS: CISATRACURIUM 200 MG in SODIUM CHLORIDE 0.9% 180 ML IV PRN ×2 (10:36→22:40)
[2021-11-24] MEDS ORDERED: CALCIUM GLUCONATE RIDER 2,000 MG/100 ML PREMIX IV ONE ×2 (11:16→12:00)
[2021-11-24] MEDS ORDERED: VANCOMYCIN INJ 1,000 MG in SODIUM CHLORIDE 0.9% 250 ML IV SCH (11:30)
[2021-11-24] MEDS ORDERED: VANCOMYCIN INJ 1,250 MG in SODIUM CHLORIDE 0.9% 250 ML IV PRN (12:28)
[2021-11-24] MEDS: cefTRIAXone 2,000 MG VIAL IM SCH (12:42)
[2021-11-24 13:12] VITALS: BP 151/75
[2021-11-24] MEDS: ACYCLOVIR INJ 1,000 MG in SODIUM CHLORIDE 0.9% 250 ML IV SCH ×2 (13:30→20:19)
[2021-11-24] MEDS ORDERED: VANCOMYCIN INJ 1,750 MG in SODIUM CHLORIDE 0.9% 500 ML IV ONE (14:00)
[2021-11-24] MEDS ORDERED: FUROSEMIDE 40 MG/4 ML VIAL IV ONE (15:28)
[2021-11-24] MEDS: MICAFUNGIN 100 MG in SODIUM CHLORIDE 0.9% 100 ML IV SCH (15:35)
[2021-11-24] MEDS: AZITHROMYCIN INJ 500 MG in SODIUM CHLORIDE 0.9% 250 ML IV SCH (16:04)
[2021-11-24 16:16] LABS: ABG HCO3 20.9 MMOL/L (20-26); ABG Oxygen Saturation 81.6 % (95-100); ABG PCO2 48.7 MM HG (35-48); ABG TCO2 21.5 MMOL/L (23-27)
[2021-11-24] MEDS ORDERED: METOPROLOL TARTRATE 5 MG/5 ML VIAL IV ONE (16:26)
[2021-11-24 18:41] LABS: Hematocrit 28.7 VOL% (35.7-47.0); Hemoglobin 9.3 GM/DL (12.0-16.0)
[2021-11-24] MEDS: INSULIN GLARGINE 100 UNIT/ML SUBCUT SCH (20:20)
[2021-11-24] MEDS: MIDAZOLAM 100 MG in SODIUM CHLORIDE 0.9% 80 ML IV PRN (22:39)
[2021-11-25] MEDS: cefTRIAXone 2,000 MG VIAL IM SCH ×3 (00:41→23:20)
[2021-11-25] MEDS: INSULIN LISPRO 100 UNIT/ML SUBCUT SCH ×4 (00:41→18:08)
[2021-11-25] MEDS ORDERED: METOPROLOL TARTRATE 5 MG/5 ML VIAL IV ONE (01:09)
[2021-11-25] MEDS: ACETAMINOPHEN 325 MG TABLET PO PRN ×2 (01:31→08:52)
[2021-11-25] MEDS: ALBUTEROL/IPRATROPIUM 3 ML NEB RESP TX SCH ×4 (02:05→19:47)
[2021-11-25 03:20] LABS: ABG Base Excess -3.9 MMOL/L (-2.5-2.5); ABG Oxygen Saturation 87.7 % (95-100); ABG PCO2 43.7 MM HG (35-48); ABG PH 7.313 (7.35-7.45); ABG TCO2 20.5 MMOL/L (23-27)
[2021-11-25 03:32] LABS: Basophils % 0.2 % (0.0-0.8); Eosinophils # 0.2 10*3/uL (0.0-0.87); Eosinophils % 1.3 % (0.00-10.9); Hematocrit 28.3 VOL% (35.7-47.0); Hemoglobin 9.2 GM/DL (12.0-16.0); Immature Granulocytes % 2.2 %; Immature Granulocytes Absolute 0.37 #; Lymphocytes # 0.9 10*3/uL (1.4-4.0); Lymphocytes % 5.2 % (21.3-54.2); Mean Corpuscular HGB Conc 32.5 GM/DL (32-36); Mean Corpuscular Volume 69.7 FL (87-102); Mean Platelet Volume 9.8 FL (9.6-12.0); NRBC # 0.32 10*3/uL; Neutrophils % 90.1 % (38.7-73.9); Platelet Count 200 T/CUMM (130-400); Red Blood Count 4.06 MC/CUMM (3.8-5.5); Red Cell Distribution Width 22.5 % (9.3-17.3); White Blood Count 17.2 T/CUMM (4-12)
[2021-11-25 03:44] LABS: Calcium 6.8 MG/DL (8.5-10.1); Osmolality,Calculated 309.3 MOS/KG (273-304); Potassium 4.3 MMOL/L (3.5-5.1)
[2021-11-25 03:52] LABS: Band Neutrophils 10 % (0-10); Eosinophils 1 % (0-10); Lymphocytes 3 % (20-55); Metamyelocytes 1 %; Nucleated Red Blood Cells 2 (0-5); Segmented Neutrophils 83 % (50-85); Total Cells Counted 100
[2021-11-25 03:53] LABS: Hypochromia 2+; Microcytosis 1+; Platelet Estimate Normal; Polychromasia Slight; Target Cells Slight
[2021-11-25] MEDS: ACYCLOVIR INJ 1,000 MG in SODIUM CHLORIDE 0.9% 250 ML IV SCH (04:10)
[2021-11-25] MEDS: PANTOPRAZOLE 40 MG VIAL IV SCH (04:10)
[2021-11-25] MEDS ORDERED: SODIUM CHLORIDE 0.9% 500 ML IV ONE (05:07)
[2021-11-25 06:23] LABS: ABG Base Excess -4.5 MMOL/L (-2.5-2.5); ABG Oxygen Saturation 68.7 % (95-100); ABG PCO2 46.9 MM HG (35-48); ABG TCO2 23.5 MMOL/L (23-27)
[2021-11-25 06:26] LABS: ABG PO2 37.9 MM HG (80-95)
[2021-11-25] MEDS: DEXTROSE 10% 250 ML BAG IV PRN (06:47)
[2021-11-25] MEDS ORDERED: METOPROLOL TARTRATE 5 MG/5 ML VIAL IV PRN (07:43)
[2021-11-25] MEDS ORDERED: CALCIUM GLUCONATE RIDER 2,000 MG/100 ML PREMIX IV ONE (08:05)
[2021-11-25] MEDS: CISATRACURIUM 200 MG in SODIUM CHLORIDE 0.9% 180 ML IV PRN ×3 (08:44→20:06)
[2021-11-25] MEDS: FERROUS SULFATE 300 MG/5 ML UDCUP PO SCH ×2 (08:51→20:25)
[2021-11-25] MEDS: CITALOPRAM 40 MG TABLET PO SCH (08:54)
[2021-11-25] MEDS: POTASSIUM CHLORIDE 20 MEQ TABLET PO SCH (08:54)
[2021-11-25] MEDS: SODIUM BICARBONATE 650 MG TABLET PO SCH ×3 (08:54→20:31)
[2021-11-25] MEDS: ENOXAPARIN 60 MG/0.6 ML SYRINGE SUBCUT SCH (08:54)
[2021-11-25] MEDS: DEXAMETHASONE 10 MG/1 ML VIAL IV SCH (08:56)
[2021-11-25] MEDS: ATORVASTATIN 40 MG TABLET PO SCH (08:56)
[2021-11-25] MEDS: CHOLESTYRAMINE 4 GM PACK PO SCH ×2 (09:00→21:00)
[2021-11-25] MEDS ORDERED: LACTATED RINGERS 500 ML IV ONE (09:01)
[2021-11-25] MEDS: fentaNYL INJ 1,250 MCG in SODIUM CHLORIDE 0.9% 225 ML IV PRN ×2 (10:12→17:25)
[2021-11-25] MEDS ORDERED: NOREPINEPHRINE 4 MG/4 ML VIAL IV ONE (10:25)
[2021-11-25] MEDS: NOREPINEPHRINE 16 MG in SODIUM CHLORIDE 0.9% 234 ML IV PRN (10:31)
[2021-11-25] MEDS ORDERED: IBUPROFEN 100 MG/5 ML UDCUP PER TUBE PRN (10:47)
[2021-11-25] MEDS: PHENYLEPHRINE INJ 160 MG in SODIUM CHLORIDE 0.9% 234 ML IV PRN ×2 (11:05→20:57)
[2021-11-25 12:04] LABS: Bilirubin,Urine Negative (Negative); Blood, Urine Small mg/dL (Negative); Glucose,Urine (UA) Negative (Negative); Ketones,Urine Negative (Negative); Mucus,Urine Occasional /LPF (Occasional); Nitrite,Urine Negative (Negative); Protein,Urine 100 MG/DL; RBC,Urine 31 /HPF (0-4); Urine Appearance CLOUDY (Clear); Urine Color Amber (Yellow); Urine Specific Gravity 1.017 (1.001-1.035); Urine Urobilinogen < 2.0 EU/DL (<2.0)
[2021-11-25 12:47] LABS: ABG Base Excess -10.3 MMOL/L (-2.5-2.5); ABG HCO3 15.9 MMOL/L (20-26); ABG Oxygen Saturation 73.1 % (95-100); ABG PCO2 66.6 MM HG (35-48); ABG TCO2 19.6 MMOL/L (23-27)
[2021-11-25 12:50] LABS: ABG PH 7.095 (7.35-7.45)
[2021-11-25 12:51] LABS: Basophils # 0.1 10*3/uL (0.0-0.2); Basophils % 0.4 % (0.0-0.8); Eosinophils # 0.1 10*3/uL (0.0-0.87); Eosinophils % 0.4 % (0.00-10.9); Hematocrit 32.4 VOL% (35.7-47.0); Hemoglobin 10.2 GM/DL (12.0-16.0); Immature Granulocytes % 3.5 %; Lymphocytes # 1.1 10*3/uL (1.4-4.0); Lymphocytes % 4.4 % (21.3-54.2); Mean Corpuscular HGB Conc 31.5 GM/DL (32-36); Mean Corpuscular Volume 72.5 FL (87-102); Mean Platelet Volume 10.5 FL (9.6-12.0); Monocytes % 1.1 % (1.7-12.7); NRBC # 0.92 10*3/uL; Neutrophils % 90.2 % (38.7-73.9); Platelet Count 230 T/CUMM (130-400); Red Blood Count 4.47 MC/CUMM (3.8-5.5); Red Cell Distribution Width 22.9 % (9.3-17.3); White Blood Count 25.5 T/CUMM (4-12)
[2021-11-25] MEDS ORDERED: SODIUM BICARBONATE 50 MEQ/50 ML VIAL IV ONE (12:53)
[2021-11-25 13:03] LABS: Calcium 7.5 MG/DL (8.5-10.1); Osmolality,Calculated 306.8 MOS/KG (273-304); Potassium 5.6 MMOL/L (3.5-5.1)
[2021-11-25 13:16] LABS: Band Neutrophils 4 % (0-10); Lymphocytes 5 % (20-55); Metamyelocytes 3 %; Nucleated Red Blood Cells 2 (0-5); Platelet Estimate Normal; Segmented Neutrophils 87 % (50-85); Total Cells Counted 100
[2021-11-25 13:17] LABS: Microcytosis 1+; Polychromasia Few; Target Cells Slight
[2021-11-25 13:18] LABS: Hypochromia 1+
[2021-11-25] MEDS ORDERED: SODIUM BICARB INJ 150 MEQ in DEXTROSE 5% 850 ML IV SCH (13:30)
[2021-11-25 13:57] LABS: ABG Base Excess -8.8 MMOL/L (-2.5-2.5); ABG HCO3 17.2 MMOL/L (20-26); ABG Oxygen Saturation 84.4 % (95-100); ABG PCO2 52.6 MM HG (35-48); ABG PO2 60.2 MM HG (80-95); ABG TCO2 18.6 MMOL/L (23-27)
[2021-11-25 13:59] LABS: ABG PH 7.184 (7.35-7.45)
[2021-11-25] MEDS: SODIUM BICARB INJ 150 MEQ in DEXTROSE 5% 1,000 ML IV SCH (14:43)
[2021-11-25] MEDS: SODIUM ZIRCONIUM CYCLOSILICATE 10 GM PACK PO SCH (14:50)
[2021-11-25] MEDS: MICAFUNGIN 100 MG in SODIUM CHLORIDE 0.9% 100 ML IV SCH (15:29)
[2021-11-25] MEDS: MIDAZOLAM 100 MG in SODIUM CHLORIDE 0.9% 80 ML IV PRN (16:05)
[2021-11-25] MEDS: AZITHROMYCIN INJ 500 MG in SODIUM CHLORIDE 0.9% 250 ML IV SCH (16:39)
[2021-11-25] MEDS: INSULIN GLARGINE 100 UNIT/ML SUBCUT SCH (20:25)
[2021-11-26] MEDS: fentaNYL INJ 1,250 MCG in SODIUM CHLORIDE 0.9% 225 ML IV PRN ×2 (00:05→10:38)
[2021-11-26] MEDS: INSULIN LISPRO 100 UNIT/ML SUBCUT SCH ×4 (00:12→17:44)
[2021-11-26] MEDS: ALBUTEROL/IPRATROPIUM 3 ML NEB RESP TX SCH ×3 (00:34→13:17)
[2021-11-26] MEDS: CISATRACURIUM 200 MG in SODIUM CHLORIDE 0.9% 180 ML IV PRN ×2 (01:00→07:49)
[2021-11-26] MEDS: ACETAMINOPHEN 325 MG TABLET PO PRN (02:47)
[2021-11-26 03:30] LABS: ABG Base Excess -9.3 MMOL/L (-2.5-2.5); ABG HCO3 16.6 MMOL/L (20-26); ABG Oxygen Saturation 75.3 % (95-100); ABG PCO2 53.6 MM HG (35-48); ABG PO2 51.4 MM HG (80-95); ABG TCO2 18.5 MMOL/L (23-27)
[2021-11-26 03:33] LABS: ABG PH 7.167 (7.35-7.45)
[2021-11-26 03:39] LABS: Basophils % 0.2 % (0.0-0.8); Hematocrit 29.2 VOL% (35.7-47.0); Hemoglobin 9.1 GM/DL (12.0-16.0); Immature Granulocytes % 5.8 %; Immature Granulocytes Absolute 1.16 #; Lymphocytes # 0.9 10*3/uL (1.4-4.0); Lymphocytes % 4.6 % (21.3-54.2); Mean Corpuscular HGB Conc 31.2 GM/DL (32-36); Mean Corpuscular Volume 73.2 FL (87-102); Mean Platelet Volume 10.6 FL (9.6-12.0); Monocytes % 2.6 % (1.7-12.7); NRBC # 0.83 10*3/uL; Neutrophils % 86.8 % (38.7-73.9); Platelet Count 183 T/CUMM (130-400); Red Blood Count 3.99 MC/CUMM (3.8-5.5); Red Cell Distribution Width 22.8 % (9.3-17.3)
[2021-11-26 03:46] LABS: Calcium 6.5 MG/DL (8.5-10.1); Osmolality,Calculated 325.7 MOS/KG (273-304); Potassium 5.8 MMOL/L (3.5-5.1)
[2021-11-26 04:06] LABS: Band Neutrophils 2 % (0-10); Hypochromia 1+; Lymphocytes 5 % (20-55); Microcytosis 1+; Nucleated Red Blood Cells 1 (0-5); Platelet Estimate Adequate; Segmented Neutrophils 91 % (50-85); Total Cells Counted 100
[2021-11-26] MEDS: PANTOPRAZOLE 40 MG VIAL IV SCH (04:08)
[2021-11-26] MEDS: NOREPINEPHRINE 16 MG in SODIUM CHLORIDE 0.9% 234 ML IV PRN (04:38)
[2021-11-26] MEDS: SODIUM BICARB INJ 150 MEQ in DEXTROSE 5% 1,000 ML IV SCH (06:07)
[2021-11-26] MEDS: PHENYLEPHRINE INJ 160 MG in SODIUM CHLORIDE 0.9% 234 ML IV PRN (06:19)
[2021-11-26] MEDS: MIDAZOLAM 100 MG in SODIUM CHLORIDE 0.9% 80 ML IV PRN (08:18)
[2021-11-26] MEDS ORDERED: ACYCLOVIR INJ 650 MG in SODIUM CHLORIDE 0.9% 100 ML IV SCH (09:00)
[2021-11-26] MEDS ORDERED: INSULIN REGULAR 10 UNIT, CALCIUM GLUCONATE 1,000 MG in DEXTROSE 10% 250 ML IV ONE (10:09)
[2021-11-26] MEDS ORDERED: INSULIN REGULAR 100 UNIT/ML IV ONE (10:11)
[2021-11-26] MEDS ORDERED: CALCIUM GLUCONATE RIDER 1,000 MG/50 ML PREMIX IV ONE (10:11)
[2021-11-26] MEDS: DEXAMETHASONE 10 MG/1 ML VIAL IV SCH (10:35)
[2021-11-26] MEDS: CITALOPRAM 40 MG TABLET PO SCH (10:35)
[2021-11-26] MEDS: SODIUM BICARBONATE 650 MG TABLET PO SCH ×2 (10:36→16:44)
[2021-11-26] MEDS: POTASSIUM CHLORIDE 20 MEQ TABLET PO SCH (10:36)
[2021-11-26] MEDS: ENOXAPARIN 60 MG/0.6 ML SYRINGE SUBCUT SCH (10:36)
[2021-11-26] MEDS: FERROUS SULFATE 300 MG/5 ML UDCUP PO SCH (10:36)
[2021-11-26] MEDS: ATORVASTATIN 40 MG TABLET PO SCH (10:36)
[2021-11-26] MEDS: SODIUM ZIRCONIUM CYCLOSILICATE 10 GM PACK PO SCH (10:36)
[2021-11-26] MEDS: CHOLESTYRAMINE 4 GM PACK PO SCH (10:39)
[2021-11-26] MEDS ORDERED: SODIUM BICARB INJ 150 MEQ in STERILE WATER INJ 1,000 ML IV SCH (11:00)
[2021-11-26] MEDS: cefTRIAXone 2,000 MG VIAL IM SCH (13:28)
[2021-11-26] MEDS ORDERED: cefTRIAXone 2,000 MG in SODIUM CHLORIDE 0.9% 100 ML IV SCH (13:30)
[2021-11-26] MEDS ORDERED: VANCOMYCIN INJ 1,250 MG in SODIUM CHLORIDE 0.9% 250 ML IV ONE (15:00)
[2021-11-26] MEDS: MICAFUNGIN 100 MG in SODIUM CHLORIDE 0.9% 100 ML IV SCH (16:44)
[2021-11-26] MEDS: AZITHROMYCIN INJ 500 MG in SODIUM CHLORIDE 0.9% 250 ML IV SCH (16:45)
== END 2021-11-26 15:35 | disposition expired | DRG 130 ==
LOC: EDUNIT# → EDBD → N.ED 22:12 → N.EDINP 23:08 → SUATTDRO 23:08 → N.CC 11-15 08:12
PROVIDERS: ADMIT Internal Medicine; ATTEND Internal Medicine